=== PATIENT | female | born 1970 | race Caucasian/White ===

== ENCOUNTER → 2021-06-25 | Outpatient (CLI) | payer BC ==
--- NOTE | 2021-06-25 15:32 | KCIC ---
EXAM: MRI right shoulder DATE: 06/25/2021 8:45 AM COMPARISON: None INDICATION: Reason: RIGHT SHOULDER PAIN / Spl. Instructions: Chronic rt sh pain and LROM. Known osteo arthritis. / History: TECHNIQUE: Multiplanar, multisequence MRI of the right shoulder was performed without contrast. FINDINGS: AC joint degenerative changes are seen. Type II acromion. No os acromiale. Small right shoulder joint effusion. There is a full-thickness tear of the supraspinatus tendon measuring approximately 2.5 cm in AP dimen [place]. Partial-thickness articular sided tear of the infraspinatus tendon measures 0.8 cm in AP dimens ion. Moderate subscapularis, supraspinatus and infraspinatus tendinosis. Moderate fatty atrophy of th e supraspinatus. Moderate intra-articular long head biceps tendinosis. Evaluation for labral tear limited on this nonarthrographic study. No acute fracture or osteonecrosis . Articular cartilage is grossly preserved. IMPRESSION: Full-thickness tear of the supraspinatus tendon measures 2.5 cm in AP dimension. Partial-thickness articular sided tear of the infraspinatus tendon measures 0.8 cm in AP dimension. Moderate intra-articular long head biceps tendinosis. Moderate subscapularis, supraspinatus and infra spinatus tendinosis. Small right shoulder joint effusion. Electronically signed by: Matt Mascorro MD (06/25/2021 3:30 PM) [id number]
== END ==
LOC: KCIC MRI 08:27
PROVIDERS: ATTEND Orthopaedic Surgery Sports Medicine
DX: M75.121 Complete rotator cuff tear or rupture of right shoulder, not specified as traumatic (principal); M25.411 Effusion, right shoulder; M75.81 Other shoulder lesions, right shoulder; M25.811 Other specified joint disorders, right shoulder
CPT/HCPCS: 73221

== ENCOUNTER 2021-07-29 06:02 | Day surgery (SDC) | payer BC ==
[~2021-07-29] VITALS: Ht 162.6 cm; Wt 98.6 kg
[2021-07-29 06:29] VITALS: BP 167/70
[2021-07-29] MEDS ORDERED: INSU100V13 SQ (06:54)
[2021-07-29] MEDS ORDERED: INSU100V6 SQ (06:55)
[2021-07-29] MEDS ORDERED: LIDOCAINE 1% Multi-Dose 20 ML VIAL. ONE (06:56)
[2021-07-29] MEDS ORDERED: BUPIVACAINE MPF 0.5% 30 ML VIAL. ONE ×2 (06:56→07:11)
[2021-07-29] MEDS ORDERED: EPINEPHrine VIAL 30 MG/30 ML VIAL ONE (06:56)
[2021-07-29] MEDS ORDERED: OMEP40CA7 PO (06:56)
[2021-07-29] MEDS ORDERED: DEXAMETHASONE SOD PHOS 4 MG/ML VIAL ONE ×2 (06:57→07:11)
[2021-07-29] MEDS ORDERED: PROPOFOL 10 MG/ML (20ML) VIAL. IV ONE (06:57)
[2021-07-29] MEDS ORDERED: SUCCINYLCHOLINE 200 MG/10 ML VIAL. ONE (06:57)
[2021-07-29] MEDS ORDERED: METF10007 PO (06:57)
[2021-07-29] MEDS ORDERED: SEVOFLURANE 61 TO 120 MINUTES. IH ONE (06:57)
[2021-07-29] MEDS ORDERED: GLIP5TAB10 PO (06:57)
[2021-07-29] MEDS ORDERED: ONDANSETRON PF 4 MG/2 ML VIAL. ONE (06:57)
[2021-07-29] MEDS ORDERED: LIDOCAINE 2% PF 5 ML VIAL. ONE ×2 (06:57→07:11)
[2021-07-29] MEDS ORDERED: LISI20TA18 PO (06:58)
[2021-07-29] MEDS ORDERED: fentaNYL PF VIAL 100 MCG/2 ML VIAL ONE (06:58)
[2021-07-29] MEDS ORDERED: CRESTOR40 MG PO (06:58)
[2021-07-29] MEDS ORDERED: CHOL5000 PO (06:59)
[2021-07-29] MEDS ORDERED: TRAM50TA PO (07:00)
[2021-07-29] MEDS ORDERED: PHENYLEPHRINE 10 MG/ML VIAL. ONE (07:06)
[2021-07-29] MEDS ORDERED: INSULIN LISPRO 100 UNIT/ML 3ML VIAL for OP,RR ONLY. SQ ONE (07:10)
[2021-07-29] MEDS ORDERED: EPINEPHrine 1 MG/ML VIAL ONE (07:11)
[2021-07-29] MEDS ORDERED: MIDAZOLAM HCL/PF 2 MG/2 ML VIAL. IV ONE (07:15)
[2021-07-29] MEDS ORDERED: INSULIN LISPRO 100 UNIT/ML 3ML VIAL for OP,RR ONLY. SQ PRN (07:15)
[2021-07-29] MEDS ORDERED: IV RINGERS,LACTATED 1000ML 1,000 ML IV SCH (07:15)
[2021-07-29] MEDS ORDERED: OXYC-325 PO (07:28)
--- NOTE | 2021-07-29 07:28 | DISCH ---
DISCHARGE INSTRUCTIONS Condition on Discharge Condition on Discharge: Stable Activity After Discharge Activity Instructions for Disc: Other ROM activity Other activity instructions: Arm to remain in sling Bathing Instructions: Shower-keep dressing dry Weight Bearing Status after Di: Non weight bearing Diet after Discharge Diet after Discharge: Regular Wound Incision Care Wound/Incision Care: Ice to area for comfort, Keep wound/cast CDI, Change dressing Other wound/incision instructi: Change dressing in [address] after DC Call your doctor for: Concerns you may have Follow-Up Follow up with: Surgeon in 2 weeks BOSTON ASH II, MD Jul 29, 2021 07:28
[2021-07-29] MEDS ORDERED: fentaNYL PF VIAL 100 MCG/2 ML VIAL IVP ONE (07:30)
--- NOTE | 2021-07-29 07:31 | PDOC4 ---
Operative Note Operative Note Date of procedure: 07/29/2021 Surgeon: Tyrone Ash Gambreler Helper: Jael Gonzalez Preoperative diagnosis: Right shoulder rotator cuff tear Postop diagnosis: Same Procedure performed: Arthroscopic right shoulder rotator cuff repair Anesthesia: General plus regional nerve block Findings: 1. Glenohumeral cartilage was unremarkable 2. Labrum was intact circumferentially 3. Biceps had auto tenodesed to anteriormost portion of supraspinatus 4. No loose bodies 5. Supraspinatus and leading edge of infraspinatus without full-thickness tear 6. Remainder of rotator cuff unremarkable Blood loss: 10 mL Complications: None Components inserted [employer] helacoil anchors times 2, footprint for lateral row fixation Reason for procedure: Patient is a pleasant 51-year-old female with persistent shoulder pain and dysfunction led to a referral to my clinic. Clinical and radiographic examination were consistent with the preoperative diagnosis. She had tried and failed conservative therapies and we had a discussion of the risk benefits alternatives to surgery and she elected to proceed. Description of procedure: Patient was greeted in the preoperative area where the correct extremity was verified and marked. The patient had placement of a regional nerve block by the anesthesiology team and was then taken back to the operating room, antibiotics were started as they were brought back. Once in the operating room, the patient was transferred gently supine to the operating table and underwent successful induction of a general anesthetic. They were then set up in a beachchair position with large pillow under her legs, all pressure points padded and C-spine maintained in a neutral position. The right upper extremity and shoulder girdle were then prepped and draped in our usual sterile fashion and we conducted our standard preoperative timeout. I then palpated marked surface anatomy. I then used a spinal needle to localize a posterior superior portal and incised skin accordance with this, and introduced the blunt arthroscopic trocar into the glenohumeral joint followed by the camera. I then used a spinal needle to localize an anterosuperior portal and incised skin in accordance with this. I dilated this hole and introduced my probe and conducted my diagnostic arthroscopy with above-noted findings. After this, I placed the camera into the subacromial space and used a spinal needle to localize a lateral portal and performed a bursectomy with combination shaver and electrocautery device. I then debrided the edge of the rotator cuff and prepared my bony footprint. I then created accessory anterolateral and posterolateral portals under spinal localization for suture management. After this, I placed 2 anchors into the rotator cuff footprint and shuttled the sutures out through the anterolateral accessory portal. I then passed 3 of the suture limbs in a simple configuration through the rotator cuff using my first pass suture passing device. I saved 1 limb from each of these after tying them down using arthroscopic knot tying techniques. The fourth suture limb was removed from the operative field. After this, I incorporated 1 limb from each of my knots into a lateral row fixation device which was impacted in position. I then cut the sutures. I then removed any loose bony debris with aspiration through the shaver. After this I remove the excess arthroscopic fluid and instrumentation from the subacromial space. The portals were closed with simple interrupted 3-0 nylon. Patient tolerated surgery well. There were no complications. At the conclusion of the repair, the tear was stable to probing and gentle rotation of the arm. The shoulder was cleansed and dried and sterile bulky dressings appl ied followed by an abduction pillow sling. The patient was laid supine and transferred gently supine to the recovery room cart and taken to PACU in stable and extubated condition. Postoperative plan is for her to be nonweightbearing. We will get her started on physical therapy in 2 weeks, and I will see her back in clinic around then. She will be discharged home today. TYRONE ASH II, MD Jul 29, 2021 07:31
[2021-07-29] MEDS ORDERED: ROCURONIUM 50 MG/5 ML VIAL. ONE (07:51)
[2021-07-29] MEDS ORDERED: NEOSTIGMINE METHYLSULFATE 5 MG/5 ML SYRINGE. ONE (08:21)
[2021-07-29] MEDS ORDERED: GLYCOPYRROLATE 1 MG/5 ML VIAL. ONE (08:21)
[2021-07-29 09:42] VITALS: BP 96/73
[2021-07-29] MEDS ORDERED: oxyCODONE/APAP 5/325 1 TAB TABLET PO ONE ×2 (10:00→10:15)
== END 2021-07-29 10:21 | disposition home or self-care (01) ==
LOC: SURG 06:02
PROVIDERS: ATTEND Orthopaedic Surgery Sports Medicine
DX: M75.120 Complete rotator cuff tear or rupture of unspecified shoulder, not specified as traumatic (principal); I10 Essential (primary) hypertension; E78.00 Pure hypercholesterolemia, unspecified; E11.9 Type 2 diabetes mellitus without complications; G47.30 Sleep apnea, unspecified; K21.9 Gastro-esophageal reflux disease without esophagitis; M19.90 Unspecified osteoarthritis, unspecified site; Z90.710 Acquired absence of both cervix and uterus; Z98.51 Tubal ligation status; Z98.890 Other specified postprocedural states; Z87.891 Personal history of nicotine dependence; Z79.84 Long term (current) use of oral hypoglycemic drugs; Z79.899 Other long term (current) drug therapy; Z88.1 Allergy status to other antibiotic agents
CPT/HCPCS: 29827; 64415; 82962; A4355; A4565; A4928; A4930; A6253; C1713; J0171; J0330; J0690; J1100; J1815; J2250; J2370; J2405; J2704; J2710; J3010; J3490; A4452